=== PATIENT | female | born 1975 | race Caucasian/White ===

== ENCOUNTER 2017-10-24 16:31 | Emergency (ER) | payer OTHER ==
[~2017-10-24] VITALS: Ht 167.6 cm; Wt 52.8 kg
[2017-10-24 17:41] LABS: HEMATOCRIT 37.6 % (36.0-46.0); HEMOGLOBIN 12.3 G/DL (11.9-15.5); MCH 27.9 PG (29.0-34.0); MCHC 32.7 G/DL (30.0-36.0); MCV 85.3 FL (83-99); PLATELET COUNT 228 K/uL (156-360); RBC DIS.WIDTH-SD 40.7 % (39-53); RED BLOOD COUNT 4.41 M/uL (3.80-5.20)
[2017-10-24 17:55] LABS: CHLORIDE 103 mEq/L (99-109); POTASSIUM 4.3 mEq/L (3.7-5.4); SODIUM 138 mEq/L (136-147)
[2017-10-24 17:56] LABS: GLUCOSE 81 mg/dL (70-99)
[2017-10-24 18:00] LABS: CREATININE 0.8 mg/dL (0.6-1.3)
[2017-10-24 18:01] LABS: UREA NITROGEN (BUN) 10 mg/dL (9-23)
[2017-10-24 18:02] LABS: GFR ESTIMATE (CALCULATED) > 59 mL/min/
[2017-10-24] MEDS ORDERED: ZITHROMAX Z-PA250 MG PO (18:24)
[2017-10-24] MEDS ORDERED: PROAIR HFA8.5 GM IH (18:24)
[2017-10-24] MEDS ORDERED: HYCODAN SYRUP480 ML PO (18:24)
[2017-10-24 18:53] VITALS: BP 130/81
== END 2017-10-24 18:53 | disposition home or self-care (01) ==
LOC: EME 16:31
PROVIDERS: Physician Assistant
DX: J18.9 Pneumonia, unspecified organism (principal); F17.200 Nicotine dependence, unspecified, uncomplicated; Z90.49 Acquired absence of other specified parts of digestive tract; Z88.6 Allergy status to analgesic agent; Z88.8 Allergy status to other drugs, medicaments and biological substances
CPT/HCPCS: 71046; 80048; 85027; 94640; 99281; 99283; J0696